=== PATIENT | male | born 1995 | race Caucasian/White ===

== ENCOUNTER 2022-05-13 12:29 | Emergency (ER) | payer SELFPAY ==
[2022-05-13] VITALS (17 sets, daily range): BP systolic 157–179; BP diastolic 82–117; PULSE 81–134; RESP 16–36; O2SAT 87–99; BMI 36.2
--- NOTE | 2022-05-13 12:39 | XRR_ITS ---
PROCEDURE INFORMATION: Exam: XR Chest Exam date and time: 05/13/2022 12:54 PM Age: 26 years old Clinical indication: Palpitations; Prior surgery; Surgery date: 6+ months; Surgery type: Heart TECHNIQUE: Imaging protocol: Radiologic exam of the chest. Views: 1 view. COMPARISON: No relevant prior studies available. FINDINGS: Tubes, catheters and devices: Surgical clips in the low right neck. Lungs: No pulmonary vascular congestion, pulmonary edema or pneumonia. Pleural spaces: No pleural effusion or pneumothorax. Heart/Mediastinum: The cardiac silhouette is not enlarged. The mediastinal contours are normal. Bones/joints: Prior sternotomy. Soft tissues: Left epicardial fat pad. XR/XR chest 1V portable [id number] IMPRESSION: No acute finding.
--- NOTE | 2022-05-13 12:42 | ED_ITS ---
HPI - Arrhythmia/Palpitations General: Chief Complaint: Arrhythmia/Palpitations Stated Complaint: TACHYCARDIC Time Seen by Provider: 05/13/22 12:39 Source: patient and EMS Mode of arrival: EMS Limitations: no limitations History of Present Illness: Patient was transported by EMS. 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 That continued eventually EMS was notified. He denied chest pain occurring but just the sensation of a rapid heart rate and feeling somewhat breathless. Upon arrival EMS noted a rapid heart rate in the 1 80-200 range and he was given 2 doses of Adenocard. At that time he had slowing of his heart rate which revealed to them at that time what appeared to be atrial fibrillation. He was given Cardizem at that time which is rate controlled in the 120 range. Patient's denies shortness of breath, fevers, recent illness etc. He is never experienced symptoms like this previously. He denies street drug use, tobacco use, energy drinks etc. He occasionally drinks a beer. Past history is remarkable for what sounds like congenital heart disease and is best can be determined at this juncture transposition of the great vessels which was corrected at and then had a redo subsequently. He is still followed annually at [facility] in [place]. He has regular cardiology appointments there and is been taking all his prescribed medications. No recent COVID illness etc. MD complaint: rapid heart beat and palpitations Severity: moderate Context: occurred during exertion Associated symptoms: Deny anxiety, nausea, pre-syncope, syncope or vomiting Review of Systems Const: Denies: fever(s) or chills Eyes: Denies: change in vision ENMT: Denies: throat pain, odynophagia, nasal discharge or nasal congestion Card: Reports: palpitations; Denies: syncope or pre-syncope Resp: Denies: dyspnea, productive cough or non-productive cough GI: Denies: abdominal pain, nausea or vomiting : Denies: flank pain, difficulty urinating or dysuria Musc: Denies: neck pain, back pain or extremity pain Skin/Breast: Denies: rash or pruritus Neuro: Denies: headache(s), numbness in extremities or weakness in extremities Psych: Denies: anxiety Physical Exam Narrative: EXAM NARRATIVE: Healthy-appearing adult male who makes good eye contact speech is goal-directed. He appears comfortable. Const: COMMON NORMALS: no acute distress, patient oriented x3 and healthy appearing GENERAL APPEARANCE: cooperative and comfortable NUTRITIONAL APPEARANCE: overweight HENMT: COMMON NORMALS: normocephalic, atraumatic, Normal nasal mucous membranes and turbinates present, moist oral mucous membranes and oropharynx normal HEAD & SCALP: normocephalic and atraumatic FACE & SINUS: normal facial exam NOSE: Normal nasal mucous membranes and turbinates present Eye: COMMON NORMALS: Equal, round and reactive pupils present, EOMs intact bilaterally and no scleral icterus PUPIL: Yes Equal, round and reactive pupils present Neck/C-Spine: COMMON NORMALS: full ROM, no lymphadenopathy, supple and Thyroid normal THYROID: Thyroid normal Chest: COMMONS NORMALS: normal inspection of the chest (Midline sternotomy scar) and normal palpation of entire chest wall Resp: COMMON NORMALS: normal respiratory effort, No use of accessory muscles and clear to auscultation bilaterally AUSCULTATION: clear to auscultation bilaterally Cardio: COMMON NORMALS: Peripheral pulses 2+ throughout RHYTHM: abnormal rhythm irregularly irregular HEART SOUNDS: Murmur heart sound present (3/6 systolic) PERIPHERAL PULSES: Peripheral pulses 2+ throughout GI: COMMON NORMALS: Normal to inspection, nondistended, normoactive bowel sounds present, Soft to palpation and non-tender PALPATION: Yes Soft to palpation : COMMON NORMALS: Yes no CVA tenderness BLADDER/KIDNEY EXAM: Yes no CVA tenderness Back/Pelvis: COMMON NORMALS: no CVA tenderness, thoracic and lumbar spine normal to inspection, no thoracic nor lumbar tenderness and thoraco-lumbar ROM normal Extremity: COMMON NORMALS: normal to inspection, full ROM, capillary refill normal, no joint enlargement, no calf tenderness and no pedal edema Neuro: COMMON NORMALS: patient oriented x3, moves all extremities, no focal motor deficits and no sensory deficits noted Skin: COMMON NORMALS: no rashes or lesions noted and turgor normal GENERAL SKIN EXAM: no rashes or lesions noted and turgor normal Course Reevaluation(s): Reevaluation #1: After receiving diltiazem and magnesium followed by oral Cardizem he appears to be in a controlled sinus rhythm at 84 bpm at this time. No other symptoms. We are contacting his cardiology team at [facility]. Time: 15:14 Reevaluation #2: Continues to remain in controlled sinus rhythm. He is symptom free. Pressures are acceptable and no other new or concerning findings on repeat examination. Time: 15:52 Consultations: Consultation #1: Consultation with cardiology at [facility] was undertaken. They reviewed current findings and in combination with his history they agreed with recommendations to continue on Cardizem 120 mg twice daily as well as Xarelto 20 mg daily. They will provide follow-up. Time: 15:51 Vital Signs: Vital signs: Vital Signs Pulse Rate 102 H 05/13/22 12:35 Respiratory Rate 18 05/13/22 12:35 Blood Pressure 178/93 05/13/22 12:35 Pulse Oximetry 98 05/13/22 12:35 Oxygen Delivery Me thod 05/13/22 12:35 MDM - Arrhythmia/Palpitations Medical Decision Making 26-year-old with a known history of congenital heart disease who is undergone multiple corrective procedures over the years presented to our emergency department via EMS after after having an episode of palpitations and discovered to be in atrial fibrillation. He received diltiazem prior to arrival but still was in atrial fibrillation with a controlled ventricular response at arrival. He responded to magnesium IV as well as 20 mg of diltiazem followed by 60 mg oral dose. Continued monitoring in the emergency department revealed him to remain in sinus rhythm. Ancillary studies were reassuring. He did have a slight elevation in his high-sensitivity troponin however nonischemic EKG, no on going chest pain symptoms makes this likely a rate related elevation and not retail wireless sales representative of ongoing ACS or ischemia. Particularly in light of being a very high sensitivity troponin. Consultation with the cardiology team at [place] was completed with suggestions made. He is stable to be discharged home with cardiology follow-up. We discussed return precautions with both patient and family who were appreciative of care. Differential Diagnosis Likely palpitations Medical Records I reviewed the patient's medical records. Lab Data I reviewed the patient's lab results. : 05/13/22 13:37 05/13/22 13:37 Radiology Impressions Chest X-Ray 05/13/22 12:39 IMPRESSION: No acute finding. Laboratory Results WBC 9.5 10^3/uL (4.0-10.0) 05/13/22 13:37 RBC 5.75 10^6/uL (4.1-5.3) H 05/13/22 13:37 Hgb 16.7 g/dL (11.7-16.6) H 05/13/22 13:37 Hct 51.0 % (42.0-52.0) 05/13/22 13:37 MCV 88.7 fl (80-94) 05/13/22 13:37 MCH 29.0 pg (28.0-34.0) 05/13/22 13:37 MCHC 32.7 g/dL (30.0-36.0) 05/13/22 13:37 RDW 12.1 % (12.1-15.1) 05/13/22 13:37 Plt Count 262 10^3/cmm (130-400) 05/13/22 13:37 MPV 11.2 fL (7.4-10.4) H 05/13/22 13:37 Neut % (Auto) 62.3 % 05/13/22 13:37 Lymph % (Auto) 22.5 % 05/13/22 13:37 Colbert % (Auto) 10.9 % 05/13/22 13:37 Eos % (Auto) 2.8 % 05/13/22 13:37 Baso % (Auto) 0.4 % 05/13/22 13:37 Neut # (Auto) 5.89 10^3/uL (1.8-7.7) 05/13/22 13:37 Lymph # (Auto) 2.1 10^3/uL (0.8-4.8) 05/13/22 13:37 Colbert # (Auto) 1.0 10^3/uL (0.2-0.9) H 05/13/22 13:37 Eos # (Auto) 0.3 10^3/uL (0.0-0.8) 05/13/22 13:37 Baso # (Auto) 0.0 10^3/uL (0.0-0.1) 05/13/22 13:37 Nucleated RBC % (auto) 0 % 05/13/22 13:37 Nucleated RBCs # 0.0 /100WBC 05/13/22 13:37 Sodium 140 mmol/L (136-145) 05/13/22 13:37 Potassium 4.1 mmol/L (3.5-5.1) 05/13/22 13:37 Chloride 106 mmol/L (98-107) 05/13/22 13:37 Carbon Dioxide 25 mmol/L (22-29) 05/13/22 13:37 Anion Gap 13.1 (5-19) 05/13/22 13:37 BUN 15 mg/dL (6-20) 05/13/22 13:37 Creatinine 0.8 mg/dL (0.7-1.2) 05/13/22 13:37 GFR Calculation 116.9 mL/min (90-130) 05/13/22 13:37 Glucose 104 mg/dL (65-115) 05/13/22 13:37 Calculated Osmolality 291 mOsm/kg (285-295) 05/13/22 13:37 Calcium 9.5 mg/dL (8.5-10.5) 05/13/22 13:37 Magnesium 2.9 mg/dL (1.7-2.3) H 05/13/22 13:37 Troponin T Gen 5 ng/L 20 ng/L (0-15) H 05/13/22 13:37 TSH 1.96 uIU/mL (0.27-4.20) 05/13/22 13:37 EKG Data EKG 1: Computer generated interpretation: Patient's initial EKG shows a ventricular rate of 120 bpm. Consistent with atrial fibrillation with rapid ventricular response. QTc intervals normal. Has some nonspecific ST-T wave changes in the lateral precordial leads. Other EKG comments: Chest X-Ray 05/13/22 12:39 IMPRESSION: No acute finding. Discharge Plan Discharge Patient Disposition: Home Clinical Impression: Atrial fibrillation Condition: Stable Prescriptions: New Cardizem CD 120 mg capsule,extended release 24hr 120 mg PO BID Qty: 60 1RF Xarelto 20 mg tablet 20 mg PO DAILY Qty: 30 1RF Rx Instructions: must administer with evening meal No Action losartan-hydrochlorothiazide 100-25 mg Tablet 1 tab PO DAILY Discharge Orders: Discharge ED (Routine); Ordered 05/13/22 Ordered By: Oscar Smart Discharge Diet: Usual diet Discharge Activity: Resume usual activity Patient Instructions: Opioid Safety, Pain Management Activity Restrictions/Additional Instructions: Take the medications we have prescribed. Cardiology from [facility] in [place] should contact you for follow-up. If you do not hear from cardiology within the next 24-48 hours call their office to arrange your follow-up appointment. If you develop recurrent palpitations, lightheadedness, chest pains or any other concerns return to this or the nearest emergency department. Coding Level of Care Code ED [employer]ter for Rosalina Fwd Exam Comprehensive
[2022-05-13] MEDS: magnesium sulfate premix 2 GM/50 ML PIGGYBACK IV (13:01)
[2022-05-13] MEDS: dilTIAZem 5 mg/mL SDV 5 mL 20 MG IVP (13:15)
[2022-05-13] MEDS: dilTIAZem 60 mg Tablet PO (13:39)
[2022-05-13 13:58] LABS: Basophils % 0.4 %; Eosinophils # 0.3 10^3/uL (0.0-0.8); Eosinophils % 2.8 %; Hemoglobin 16.7 g/dL (11.7-16.6); Lymphocytes # 2.1 10^3/uL (0.8-4.8); Lymphocytes % 22.5 %; Mean Corpuscular HGB Conc 32.7 g/dL (30.0-36.0); Mean Corpuscular Volume 88.7 fl (80-94); Mean Platelet Volume 11.2 fL (7.4-10.4); Monocytes % 10.9 %; Neutrophils # 5.89 10^3/uL (1.8-7.7); Neutrophils % 62.3 %; Nucleated Red Blood Cells % 0 %; Platelet Count 262 10^3/cmm (130-400); Red Blood Count 5.75 10^6/uL (4.1-5.3); Red Cell Distribution Width 12.1 % (12.1-15.1); White Blood Count 9.5 10^3/uL (4.0-10.0)
[2022-05-13 14:22] LABS: Troponin T (5th) Once 20 ng/L (0-15)
[2022-05-13 14:30] LABS: Anion Gap 13.1 (5-19); Blood Urea Nitrogen 15 mg/dL (6-20); Calcium 9.5 mg/dL (8.5-10.5); Carbon Dioxide 25 mmol/L (22-29); Chloride 106 mmol/L (98-107); Glomerular Filtration Rate 116.9 mL/min (90-130); Glucose 104 mg/dL (65-115); Magnesium 2.9 mg/dL (1.7-2.3); Osmolality Calculated 291 mOsm/kg (285-295); Potassium 4.1 mmol/L (3.5-5.1); Sodium 140 mmol/L (136-145); Thyroid Stimulating Hormone 1.96 uIU/mL (0.27-4.20)
== END 2022-05-13 16:13 | disposition home or self-care (01) ==
PROVIDERS: Emergency Provider Emergency Medicine
DX: I48.91 Unspecified atrial fibrillation (principal)
CPT/HCPCS: 36415; 71045; 80048; 83735; 84443; 84484; 85025; 96365; 99284; J3475; J3490

== ENCOUNTER → 2024-02-17 13:09 | Outpatient (BNVA) | payer OTHER, SELFPAY | PROVIDERS: PCP Nurse Practitioner Family; Visit Provider Nurse Practitioner Family | DX: Z95.2 Presence of prosthetic heart valve (principal) | CPT/HCPCS: 80053; 80061; 83036; 83721; 83880 ==